=== PATIENT | female | born 1985 | race Asian ===

== ENCOUNTER 2018-08-09 20:19 | Emergency (ER) | payer OTHER ==
--- NOTE | 2018-08-10 00:09 | ED ---
Throat Pain/Nasal Congestion - HPI Summary HPI Summary: Patient complains of possible bone stuck in throat and pain with swallowing since eating fish at 1900 today. Patient states she is able to tolerate oral fluids, and has had fluids to drink, but has not tried to eat. Denies any other symptoms, injury, pain. History is none. - History of Current Complaint Chief Complaint: EDThroatPain Time Seen by Provider: 08/09/18 23:50 Hx Obtained From: Patient Onset/Duration: Sudden Onset Severity: Moderate Associated Signs And Symptoms: Positive: Dysphagia, FB Sensation Cough: None - Allergies/Home Medications Allergies/Adverse Reactions: Allergies Allergy/AdvReac Type Severity Reaction Status Date / Time antihistamines Allergy Unknown Uncoded 08/09/18 23:53 Reaction Details PMH/Surg Hx/FS Hx/Imm Hx Endocrine/Hematology History: Denies: Hx Anticoagulant Therapy Cardiovascular History: Denies: Hx Cardiac Arrest History: Denies: Hx Dialysis Neurological History: Denies: Hx CVA Infectious Disease History: No Infectious Disease History: Denies: Traveled Outside the [place] in Last 30 Days - Social History Alcohol Use: None Substance Use Type: Reports: None Smoking Status (MU): Never Smoked Tobacco Review of Systems Constitutional: Negative Eyes: Negative Positive: Sore Throat Cardiovascular: Negative Respiratory: Negative Gastrointestinal: Negative Genitourinary: Negative Musculoskeletal: Negative Skin: Negative Neurological: Negative Psychological: Normal All Other Systems Reviewed And Are Negative: Yes Physical Exam - Summary Physical Exam Summary: Foreign body protruding from left peritonsillar area. Fishbone removed. Triage Information Reviewed: Yes Vital Signs On Initial Exam: Initial Vitals Temp Pulse Resp BP Pulse Ox 99.2 F 76 14 154/87 99 08/09/18 20:26 08/09/18 20:26 08/09/18 20:26 08/09/18 20:26 08/09/18 20:26 Vital Signs Reviewed: Yes Appearance: Positive: Well-Appearing Skin: Positive: Warm Head/Face: Positive: Normal Head/Face Inspection Eyes: Positive: Normal ENT: Positive: Other Neck: Positive: Supple Respiratory/Lung Sounds: Positive: Clear to Auscultation Cardiovascular: Positive: Normal Abdomen Description: Positive: Nontender Musculoskeletal: Positive: Normal Neurological: Positive: Normal Psychiatric: Positive: Normal AVPU Assessment: Alert - Cici Coma Scale Best Eye Response: 4 - Spontaneous Best Motor Response: 6 - Obeys Commands Best Verbal Response: 5 - Oriented Coma Scale Total: 15 Diagnostics - Vital Signs Vital Signs Temp Pulse Resp BP Pulse Ox 08/09/18 22:28 99.1 F 67 16 121/85 100 08/09/18 20:26 99.2 F 76 14 154/87 99 - Laboratory Lab Statement: Any lab studies that have been ordered have been reviewed, and results considered in the medical decision making process. EENT Course/Dx - Course Course Of Treatment: Patient complains of possible bone stuck in throat and pain with swallowing since eating fish at 1900 today. Patient states she is able to tolerate oral fluids, and has had fluids to drink, but has not tried to eat. Denies any other symptoms, injury, pain. History is none. Physical exam: Foreign body protruding from left peritonsillar area. Fishbone removed. Vital signs within normal limits. - Diagnoses Provider Diagnoses: Foreign body (FB) in soft tissue Discharge - Sign-Out/Discharge Documenting (check all that apply): Patient Departure - Discharge Plan Condition: Stable Disposition: HOME Patient Education Materials: Foreign Body in Pharynx (ED) Referrals: No Primary Care Phys,NOPCP [Primary Care Provider] - [facility] [Outside] Additional Instructions: Gargle with saltwater. Follow-up with primary care. Return to the ED for any new or worsening symptoms - Billing Disposition and Condition Condition: STABLE Disposition: Home
[2018-08-10 00:36] VITALS: BP 154/93
== END 2018-08-10 00:34 | disposition home or self-care (01) ==
LOC: EDBD → MERGE 20:19 → ED 20:19
DX: M79.5 Residual foreign body in soft tissue (principal); R13.10 Dysphagia, unspecified
CPT/HCPCS: 99282